=== PATIENT | male | born 1955 | race Caucasian/White ===

== ENCOUNTER 2023-06-25 20:53 | Emergency (ER) | payer OTHER, BC ==
[2023-06-25 20:56] VITALS: BP 122/87; PULSE 118; RESP 19; TEMP 98.7; BMI 30.9
[2023-06-25] MEDS ORDERED: diphenhydrAMINE HCL 50 MG CAPSULE PO ONE (21:01)
[2023-06-25] MEDS ORDERED: predniSONE 20 MG TABLET (UD) PO ONE (21:02)
[2023-06-25] MEDS ORDERED: predniSONE 20 MG TABLET (UD) ONE (21:04)
[2023-06-25] MEDS ORDERED: diphenhydrAMINE HCL 50 MG CAPSULE ONE (21:04)
== END 2023-06-25 23:26 | disposition home or self-care (01) ==
LOC: FER 20:53
PROC: 3E0234Z Introduction of Serum, Toxoid and Vaccine into Muscle, Percutaneous Approach (ICD-10-PCS; principal; 2023-06-25)
DX: R21 Rash and other nonspecific skin eruption (principal); L50.9 Urticaria, unspecified; T78.40XA Allergy, unspecified, initial encounter
CPT/HCPCS: 99283-25

== ENCOUNTER 2023-12-18 20:06 | Emergency (ER) | payer OTHER, BC ==
[2023-12-18 20:41] VITALS: TEMP 97.5; BMI 30.7
[2023-12-18] MEDS: SODIUM CHLORIDE 1,000 ML IV ONE (20:45)
[2023-12-18 20:56] LABS: HEMATOCRIT 41.3 % (35.4-49); HEMOGLOBIN 13.6 G/dL (11.7-16.9); MCH 29.6 pg (25.7-33.7); MEAN CELL VOLUME 89.6 fl (80-96); MEAN PLT VOLUME 9.2 fl (7.5-11.1); PLATELET COUNT 160.2 10^3/uL (134-434); RBC 4.61 10^6/uL (4.00-5.60); RDW 16.2 % (11.9-15.9); WHITE BLOOD COUNT 3.5 10^3/uL (4.0-10.8)
[2023-12-18 21:10] LABS: BILIRUBIN,TOTAL 0.5 mg/dl (0.2-1); CALCIUM 9.1 mg/dl (8.5-10.1); CREATININE 0.9 mg/dl (0.6-1.3); TOT PROT 7.1 g/dl (6.4-8.2)
[2023-12-18 21:29] VITALS: BP 114/72; PULSE 70; RESP 17
== END 2023-12-18 21:45 | disposition home or self-care (01) ==
LOC: FER 20:06
PROC: 3E033GC Introduction of Other Therapeutic Substance into Peripheral Vein, Percutaneous Approach (ICD-10-PCS; principal; 2023-12-18)
DX: R07.89 Other chest pain (principal); F10.920 Alcohol use, unspecified with intoxication, uncomplicated; Y90.7 Blood alcohol level of 200-239 mg/100 ml
CPT/HCPCS: 36415; 80053; 80307; 82962; 85027; 93005; 99284-25